=== PATIENT | male | born 1995 | race Caucasian/White ===

== ENCOUNTER 2016-11-24 06:00 | Emergency (ER) | payer MEDICAID ==
[~2016-11-24] VITALS: Ht 167.6 cm; Wt 65.0 kg
[2016-11-24 06:13] VITALS: Ht 167.6 cm; Wt 65.0 kg
[2016-11-24] MEDS ORDERED: IBUPROFEN 200 MG TAB PO ONE (07:00)
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
[2016-11-24 07:23] VITALS: BP 135/96; PULSE 65; RESP 16
--- NOTE | 2016-11-24 07:36 | RADRPT ---
PROCEDURE: XR Shoulder. CLINICAL INDICATION: Fall, pain TECHNIQUE: 2 views of the right shoulder are available for review. COMPARISON: None available FINDINGS: The osseous structures, articular spaces, and surrounding soft tissues of the right shoulder are int act. No acute fracture or dislocation is seen. No radiopaque foreign body is identified. The acrom ioclavicular joint is grossly unremarkable. The visualized portions of the right clavicle and upper right rib cage are equally unremarkable. IMPRESSION: 1. Unremarkable right shoulder x-ray series. 2. No acute fracture or dislocation is seen. RPTAT: EE .Christian Rockwell MD, MD Date Time Electronically viewed and signed by .Christian Rockwell MD, on 11/24/2016 07:36 .R/
== END 2016-11-24 09:13 ==
LOC: E/R 06:00
DX: S40.011A Contusion of right shoulder, initial encounter (principal); S02.5XXA Fracture of tooth (traumatic), initial encounter for closed fracture; S61.412A Laceration without foreign body of left hand, initial encounter; S80.211A Abrasion, right knee, initial encounter; F17.210 Nicotine dependence, cigarettes, uncomplicated; V18.4XXA Pedal cycle driver injured in noncollision transport accident in traffic accident, initial encounter
CPT/HCPCS: 12001; 73030; Z7610